=== PATIENT | male | born 2000 | race Two or more races ===

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

== ENCOUNTER → 2024-12-15 | Emergency (ER) | payer OTHER ==
[~2024-12-15] VITALS: Ht 180.3 cm; Wt 74.8 kg
[~2024-12-15] MED LIST: FAMOTIDINE/PF 20 MG/2 ML VIAL ONE; FAMOtidine 10 MG/ML (4ML VIAL) IV STA; FLONASE16 GM NASAL; METOCLOPRAMIDE HCL 10 MG in DEXTROSE 5 % IN WATER 50 ML IV ONE; METOCLOPRAMIDE HCL 5 MG/ML VIAL ONE; ONDANSETRON HCL 2 MG/ML VIAL IV ONE; ONDANSETRON HCL 2 MG/ML VIAL ONE; RINGERS SOLUTION,LACTATED 1,000 ML IV STA
[2024-12-15 11:29] LABS: PH,URINE 5.5 (5.0-8.0); URINE APPEARANCE Clear; URINE BILIRRUBIN Negative (NEGATIVE); URINE BLOOD NHT; URINE COLOR Dark Yellow; URINE GLUCOSE Negative (NEGATIVE); URINE LEUKOCYTE Trace; URINE NITRATE Negative; URINE PROTEIN 30 (NEGATIVE)
[2024-12-15 11:32] LABS: URINE BACTERIA 17.1 uL (0.0-1933); URINE EPITHELIAL CELLS 7.7 uL (0.0-38.8); URINE RBC 13.5 uL (0.0-20.8); URINE WBC 2.6 uL (0.0-23.2)
[2024-12-15 11:43] LABS: URINE CAST 0.14 uL (0.0-1.40); URINE KETONE 80 (NEGATIVE)
[2024-12-15 11:48] LABS: HEMATOCRIT 45.4 % (39.0-48.0); MEAN CELL VOLUME 85.3 fL (80.0-100.00); MEAN CORPUSCULAR HEMOGLOBIN 30.1 pg (27.00-32.0); MEAN CORPUSCULAR HGB CONC 35.3 g/dl (32.0-36.0); PLATELET COUNT 197 K/uL (150-450); RED BLOOD COUNT 5.32 M/uL (4.00-6.00); RED CELL DISTRIBUTION WIDTH 13.3 % (11.5-14.5)
[2024-12-15 12:23] LABS: ALBUMIN 4.7 gm/dL (3.4-5.0); BILIRUBIN TOTAL 1.12 mg/dL (0.3-1.2); BILIRUBIN,CONJUGATED 0.28 mg/dL (0.0-0.2); BILIRUBIN,UNCONJUGATED 0.84 mg/dL (0.0-0.6); CALCIUM 9.7 mg/dL (8.5-10.1); CREATININE SERUM 1.29 mg/dL (0.70-1.30); GFR 68.43; POTASSIUM 3.78 mEq/L (3.5-5.1); TOTAL PROTEIN 7.6 gm/dL (6.4-8.2)
== END | disposition home or self-care (01) ==
LOC: ER 10:03
PROVIDERS: General Practice
DX: R11.10 Vomiting, unspecified (principal)